=== PATIENT | female | born 1985 ===

== ENCOUNTER 2022-10-03 13:00 | Outpatient (CLI) | payer SELFPAY ==
--- NOTE | 2022-10-10 14:43 | P.LACCB_ITS ---
Consult Note - Mom Date of Visit Date of visit: 10/03/22 enterprise resource planning consultant: Vivian Toney Visit Code: Visit Patient's Information Phone number: [phone] Assessments/Interventions Assessments/Interventions: Patient called the office with concern for milk supply. She has a 4 month old baby who was term, no complications at delivery (mom did not get her care, nor did she deliver at [facility]). She reports she was away from baby on vacation for about 11 days. While she was away she attempted to pump but wasn't able to get let-downs and the pump (Motif [employer]aney) caused a lot of nipple pain. Her supply dropped from 3 - 4 oz total each time to about 2 oz total each time. She returned on 09/28 and stopped pumping as she was back with baby. Reports baby seemed hungry so she started supplementing with with donor milk but states it's too expensive to use senior medical director. She's tried teas without any improvement. Suggested mom keep nursing but try to also pump six times/ 24 hours using breast compression and hand expression. Reviewed power pumping which she said she could try when she's off early next week. Suggested having a beer daily or Morales's yeast. Baby may still need supplement, could look into [employer] [facility] Facebook groups. Will f/u on 10/10/22
== END 2022-10-03 13:01 | disposition home or self-care (01) ==
LOC: OB LAC 14:35
PROVIDERS: PCP Obstetrics & Gynecology; Visit Provider Obstetrics & Gynecology
DX: Z39.1 Encounter for care and examination of lactating mother (principal)
CPT/HCPCS: 99211